=== PATIENT | male | born 1990 | race Hispanic/Latino ===

== ENCOUNTER 2016-11-06 22:36 | Emergency (ER) | payer MEDICAID, OTHER ==
[2016-11-06 22:39] VITALS: BMI 33.9
--- NOTE | 2016-11-06 23:06 | ED PDOC ---
Arrival/HPI - General Chief Complaint: Anxiety Time Seen by Provider: 11/06/16 22:44 Historian: Patient - History of Present Illness Narrative History of Present Illness (Text): 11/06/16 23:02 Prasanth Wright is a 25 year old male, with a history of anxiety, presents to the emergency department complaining of shortness of breath and diaphoresis for past few hours prior to arrival. States that symptoms are similar to previous panic attacks. States he was at the diner getting food when the symptoms presented. States he took Xanax prior to arrival for minimal relief. Denies fever, chills, headache, dizziness, chest pain, nausea, vomiting, diarrhea, urinary symptoms, or any other complaints at this time. Time/Duration: 1-3 hours Symptom Course: Unchanged Severity Level: Mild Activities at Onset: Light Past Medical History - Provider Review Nursing Documentation Reviewed: Yes - Infectious Disease Hx of Infectious Diseases: None - Gastrointestinal Hx Hemorrhoids: Yes - Psychiatric Hx Anxiety: Yes Hx Panic Disorder: Yes Hx Substance Use: No - Anesthesia Hx Anesthesia: No - Suicidal Assessment Feels Threatened In Home Enviroment: No Family/Social History - Physician Review Nursing Documentation Reviewed: Yes Family/Social History: No Known Family HX Smoking Status: Unknown If Ever Smoked Hx Alcohol Use: No Hx Substance Use: No Allergies/Home Meds Allergies/Adverse Reactions: Allergies No Known Allergies Allergy (Verified 10/02/14 04:40) Review of Systems - Physician Review All systems were reviewed & negative as marked: Yes - Review of Systems Constitutional: Normal. absent: Fatigue, Fevers Respiratory: SOB. absent: Cough, Sputum Cardiovascular: absent: Chest Pain, Palpitations, KEBEDE Gastrointestinal: absent: Abdominal Pain, Diarrhea, Nausea, Vomiting Musculoskeletal: Normal Neurological: Normal. absent: Headache, Dizziness Psychiatric: Anxiety Physical Exam Vital Signs Reviewed: Yes Vital Signs Temp Pulse Resp BP Pulse Ox 11/07/16 01:30 98.6 F 78 18 140/80 99 11/06/16 22:36 98.2 F 99 H 24 140/90 100 Temperature: Afebrile Blood Pressure: Normal Pulse: Tachycardic Respiratory Rate: Normal Appearance: Positive for: Well-Appearing, Non-Toxic, Comfortable Pain Distress: None Mental Status: Positive for: Alert and Oriented X 3 - Systems Exam Head: Present: Atraumatic, Normocephalic Pupils: Present: PERRL Conjunctiva: Present: Normal Respiratory/Chest: Present: Clear to Auscultation, Good Air Exchange. No: Respiratory Distress, Accessory Muscle Use Cardiovascular: Present: Regular Rate and Rhythm, Normal S1, S2. No: Murmurs Abdomen: Present: Normal Bowel Sounds. No: Tenderness, Distention, Peritoneal Signs Upper Extremity: Present: Normal Inspection. No: Cyanosis, Edema Lower Extremity: Present: Normal Inspection. No: Edema Neurological: Present: GCS=15, CN II-XII Intact, Speech Normal Skin: Present: Warm, Dry, Normal Color. No: Rashes Psychiatric: Present: Alert, Oriented x 3, Anxious Medical Decision Making ED Course and Treatment: 11/06/16 23:07 Impression: A 25 year old male who presents to the emergency department complaining of shortness of breath and diaphoresis, which is similar to previous panic attacks. Plan: -- Labs, cardiac enzymes -- Alchol level -- Drug screen -- Ativan -- Urinalysis -- Reassess and disposition Progress Notes: 11/07/16 01:56 Reevaluation: On reevaluation the patient feels better and is in no acute distress. I have discussed the results and plan with the patient, who expresses understanding. Patient given the opportunity to ask question, all questions were answered and there is agreement with the plan to discharge the patient home. Patient is stable for discharge. Patient was instructed to follow up with physician/clinic in 1-2 days or return if symptoms persist/worsen or new concerning symptoms arise. - Lab Interpretations Lab Results: 11/06/16 23:20 11/06/16 23:20 Lab Results 11/06/16 23:20: Alcohol, Quantitative < 10 11/06/16 23:20: Salicylates < 1 L, Acetaminophen < 10.0 L 11/06/16 23:20: Sodium 135, Potassium 3.3 L, Chloride 99, Carbon Dioxide 20 L, Anion Gap 19, BUN 16, Creatinine 0.9, Est GFR ( Amer) > 60, Est GFR (Non- Af Amer) > 60, Random Glucose 120 H, Calcium 10.2, Magnesium 1.8, Total Bilirubin 0.7, AST 51, ALT 55, Alkaline Phosphatase 153 H, Lactate Dehydrogenase 417, Total Creatine Kinase 73, Troponin I < 0.01, Total Protein 8.9 H, Albumin 4.8, Globulin 4.0, Albumin/Globulin Ratio 1.2 11/06/16 23:20: WBC 9.9 D, RBC 4.98, Hgb 15.5, Hct 43.5, MCV 87.3, MCH 31.1, MCHC 35.6, RDW 12.9, Plt Count 292, MPV 10.3, Gran % 68.2 H, Lymph % (Auto) 22.9 , Drew % (Auto) 5.7, Eos % (Auto) 2.7, Baso % (Auto) 0.5, Gran # 6.77 H, Lymph # 2.3, Drew # 0.6, Eos # 0.3, Baso # 0.05 I have reviewed the lab results: Yes - Medication Orders Current Medication Orders: Discontinued Medications Lorazepam (Ativan) 1 mg IVP ONCE ONE PRN Reason: Protocol Stop: 11/06/16 23:03 Last Admin: 11/06/16 23:15 Dose: 1 mg - Scribe Statement The provider has reviewed the documentation as recorded by the Carolee Cotton Provider Attestation: All medical record entries made by the Carolee were at my direction and personally dictated by me. I have reviewed the chart and agree that the record accurately reflects my personal performance of the history, physical exam, medical decision making, and the department course for this patient. I have also personally directed, reviewed, and agree with the discharge instructions and disposition. Disposition/Present on Arrival - Present on Arrival Any Indicators Present on Arrival: No History of DVT/PE: No History of Uncontrolled Diabetes: No Urinary Catheter: No History of Decub. Ulcer: No History Surgical Site Infection Following: None - Disposition Have Diagnosis and Disposition been Completed?: Yes Diagnosis: Anxiety Disposition: HOME/ ROUTINE Disposition Time: 02:00 Condition: GOOD Discharge Instructions (ExitCare): Anxiety (ED) Referrals: [facility] [Outside] - Follow up with primary [facility] [Outside] - Follow up with primary [facility] Venkat Garcia, [Non-Staff] - Follow up with primary
[2016-11-06 23:27] LABS: ADD MANUAL DIFF? NO
[2016-11-06 23:38] LABS: BASO # 0.05 K/mm3 (0.0-2.0); BASO % 0.5 % (0.0-3.0); EOS # 0.3 (0.0-0.7); EOS % 2.7 % (1.5-5.0); GRAN # 6.77 (1.4-6.5); GRAN % 68.2 % (50.0-68.0); HEMATOCRIT 43.5 % (42.0-52.0); LYMPH # 2.3 (1.2-3.4); LYMPH % 22.9 % (22.0-35.0); MEAN CELL VOLUME 87.3 fL (80.0-105.0); MEAN CORPUSCULAR HEMOGLOBIN 31.1 pg (25.0-35.0); MEAN CORPUSCULAR HGB CONC 35.6 g/dl (31.0-37.0); MEAN PLATELET VOLUME 10.3 fl (7.0-11.0); MONO # 0.6 (0.1-0.6); MONO % 5.7 % (1.0-6.0); PLATELET COUNT 292 10^3/uL (120.0-450.0); RED CELL DISTRIBUTION WIDTH 12.9 % (11.5-14.5); WHITE BLOOD COUNT 9.9 10^3/ul (4.5-11.0)
[2016-11-06 23:56] LABS: ALB/GLOB RATIO 1.2 (1.1-1.8); ALKALINE PHOSPHATASE 153 U/L (38-133); ALT/SGPT 55 U/L (7-56); AST/SGOT 51 U/L (15-59); BILIRUBIN,TOTAL 0.7 mg/dL (0.2-1.3); BLOOD UREA NITROGEN 16 mg/dL (7-21); CALCIUM 10.2 mg/dL (8.4-10.5); CARBON DIOXIDE 20 mmol/L (21-33); CHLORIDE 99 mmol/L (98-107); GFR AFRICAN-AMERICAN > 60; GLUCOSE,RANDOM 120 mg/dL (70-110); MAGNESIUM 1.8 mg/dL (1.7-2.2); POTASSIUM 3.3 mmol/L (3.6-5.0); SODIUM 135 mmol/L (132-148); TOTAL PROTEIN 8.9 g/dL (5.8-8.3)
[2016-11-07 00:17] LABS: TROPONIN I < 0.01 ng/mL
[2016-11-07 01:31] VITALS: BP 140/80; PULSE 78; RESP 18; TEMP 98.6; O2SAT 99
--- NOTE | 2016-11-07 22:58 | CARD ---
APPROVED REPORT EKG Measurement Heart [id number] NM [id number] <Conclusion> Normal sinus rhythm Nonspecific T wave abnormality Prolonged QT Abnormal ECG
== END 2016-11-07 01:40 | disposition home or self-care (01) ==
LOC: ED 22:36
DX: F41.9 Anxiety disorder, unspecified (principal)
CPT/HCPCS: 80053; 82550; 83615; 83735; 84484; 85025; 93005; 96374; 99283; G0480; J2060

== ENCOUNTER 2018-01-31 18:43 | Emergency (ER) | payer BC, MEDICAID ==
[2018-01-31 18:55] VITALS: BMI 33.6
[2018-01-31 19:02] VITALS: TEMP 98.2
--- NOTE | 2018-01-31 19:09 | ED PDOC ---
Arrival/HPI - General Chief Complaint: Anxiety Time Seen by Provider: 01/31/18 19:07 Historian: Patient - History of Present Illness Narrative History of Present Illness (Text): 01/31/18 19:09 Prasanth Wright is a 27 year old male, with a history of anxiety, presents to the emergency department complaining of shortness of breath , anxious, hyperventilating, tingling both hands x [employer]. Patient stated that at the end of his work out at the gym, he developed his symptoms. States that symptoms are similar to previous panic attack, but he never had tingling of hands. Patient denies chest pain, abdominal pain, n/v, urinary symptoms, illegal drug use, fever, dizziness, or abnormal gait. Time/Duration: Other (see hpi) Context: Home Past Medical History - Provider Review Nursing Documentation Reviewed: Yes - Infectious Disease Hx of Infectious Diseases: None - Gastrointestinal Hx Hemorrhoids: Yes - Psychiatric Hx Anxiety: Yes Hx Panic Disorder: Yes Hx Substance Use: No - Anesthesia Hx Anesthesia: No - Suicidal Assessment Feels Threatened In Home Enviroment: No Family/Social History - Physician Review Nursing Documentation Reviewed: Yes Family/Social History: Other Smoking Status: Never Smoked Hx Alcohol Use: No Hx Substance Use: No Allergies/Home Meds Allergies/Adverse Reactions: Allergies No Known Allergies Allergy (Verified 10/02/14 04:40) Home Medications: Home Meds Medication Instructions Recorded Confirmed Escitalopram Oxalate [Lexapro] 10 mg PO DAILY 01/31/18 01/31/18 clonazePAM [Klonopin] 0.5 mg PO DAILY 01/31/18 01/31/18 Review of Systems - Review of Systems Constitutional: Normal. absent: Fatigue, Weight Change, Fevers, Night Sweats Eyes: Normal ENT: Normal Respiratory: SOB. absent: Cough, Sputum, Wheezing Cardiovascular: Normal. absent: Chest Pain, Palpitations, Edema, Calf Pain, KEBEDE , Orthopnea, Syncope ([id number]) Gastrointestinal: Normal Genitourinary Male: Normal Musculoskeletal: Normal Skin: Normal Neurological: Normal Endocrine: Normal Hemo/Lymphatic: Normal Psychiatric: Anxiety, Other (see hpi). absent: Depression, Suicidal Ideation Physical Exam Vital Signs Temp Pulse Resp BP Pulse Ox 01/31/18 18:44 98.2 F 132 H 24 138/84 99 Temperature: Afebrile Blood Pressure: Normal Pulse: Tachycardic Respiratory Rate: Normal Appearance: Positive for: Well-Appearing, Non-Toxic, Comfortable Pain Distress: None Mental Status: Positive for: Alert and Oriented X 3 - Systems Exam Head: Present: Atraumatic, Normocephalic Pupils: Present: PERRL Extroacular Muscles: Present: EOMI Conjunctiva: Present: Normal Mouth: Present: Moist Mucous Membranes Neck: Present: Normal Range of Motion Respiratory/Chest: Present: Clear to Auscultation, Good Air Exchange. No: Respiratory Distress, Accessory Muscle Use Cardiovascular: Present: Regular Rate and Rhythm, Normal S1, S2. No: Murmurs Abdomen: No: Tenderness, Distention, Peritoneal Signs Back: Present: Normal Inspection Upper Extremity: Present: Normal Inspection. No: Cyanosis, Edema Lower Extremity: Present: Normal Inspection. No: Edema Neurological: Present: GCS=15, CN II-XII Intact, Speech Normal Skin: Present: Warm, Dry, Normal Color. No: Rashes Psychiatric: Present: Alert, Oriented x 3, Anxious Medical Decision Making ED Course and Treatment: 01/31/18 20:56 Re-evaluation. Patient feels better. Discussed results and plan with patient who expresses understanding. All questions answered and there is agreement with the plan to discharge home with instructions. Patient stable for discharge. Return if symptoms persist or worsen Patient refused PES evaluation. Patient was recommended to follow up pmd in 1- 2 days, and to return to emergency department if symptom worsen. Re-evaluation Time: 20:57 Reassessment Condition: Re-examined, Improved - Lab Interpretations Lab Results: 01/31/18 19:38 01/31/18 19:38 Lab Results 01/31/18 19:41: POC Glucose (mg/dL) 81 01/31/18 19:38: Alcohol, Quantitative < 10 01/31/18 19:38: Salicylates < 1 L, Acetaminophen < 10.0 L 01/31/18 19:38: Sodium 141, Potassium 3.8, Chloride 100, Carbon Dioxide 26, Anion Gap 19, BUN 19, Creatinine 0.9, Est GFR ( Amer) > 60, Est GFR (Non- Af Amer) > 60, Random Glucose 92, Calcium 10.1, Magnesium 1.6 L, Total Bilirubin 0.6, AST 39, ALT 42, Alkaline Phosphatase 180 H, Total Protein 8.7 H, Albumin 4.8, Globulin 3.9, Albumin/Globulin Ratio 1.2 01/31/18 19:38: WBC 9.8, RBC 5.01, Hgb 15.4, Hct 43.4, MCV 86.6, MCH 30.7, MCHC 35.5, RDW 13.5, Plt Count 267, MPV 10.2, Gran % 65.3, Lymph % (Auto) 26.6, Tama % (Auto) 6.7 H, Eos % (Auto) 1.0 L, Baso % (Auto) 0.4, Gran # 6.42, Lymph # ( Auto) 2.6, Tama # (Auto) 0.7 H, Eos # (Auto) 0.1, Baso # (Auto) 0.04 I have reviewed the lab results: Yes Interpretation: No sign. chg./baseline - RAD Interpretation Narrative RAD Interpretations (Text): 01/31/18 20:52 Chest X-Ray: NAD Radiology Orders: 01/31/18 19:50 CHEST PORTABLE [RAD] Stat - EKG Interpretation Interpreted by ED Physician: Yes (NSR @ [address] changes) Type: 12 lead EKG - Medication Orders Current Medication Orders: Discontinued Medications Lorazepam (Ativan) 1 mg IVP ONCE ONE PRN Reason: Protocol Stop: 01/31/18 19:11 Last Admin: 01/31/18 19:40 Dose: 1 mg IVP Administration Document 01/31/18 19:40 RD (Rec: 01/31/18 19:40 RD [id number]) Charges for Administration # of IVP Administrations 1 Disposition/Present on Arrival - Present on Arrival Any Indicators Present on Arrival: No History of DVT/PE: No History of Uncontrolled Diabetes: No Urinary Catheter: No History of Decub. Ulcer: No History Surgical Site Infection Following: None - Disposition Have Diagnosis and Disposition been Completed?: Yes Diagnosis: Anxiety Disposition: HOME/ ROUTINE Disposition Time: 20:54 Patient Plan: Discharge Patient Problems: Current Active Problems Problem Status Onset Anxiety Acute Condition: IMPROVED Discharge Instructions (ExitCare): Anxiety, Adult (DC) Additional Instructions: Call private doctor for follow up visit in 1-2 days. Continue with home medication for anxiety. Return to emergency if you develop chest pain, or worsening of your symptoms. Make sure to follow up with private psychiatrist for your anxiety. Referrals: Akila VILLAR,Inder Nugent MD [Primary Care Provider] - Follow up with primary Jd Chin MD [Staff Provider] - Follow up with primary Forms: [employer] (Belarusian), WORK NOTE
[2018-01-31 19:54] LABS: BASO # 0.04 K/mm3 (0.0-2.0); BASO % 0.4 % (0.0-3.0); EOS # 0.1 (0.0-0.7); GRAN # 6.42 (1.4-6.5); GRAN % 65.3 % (50.0-68.0); HEMOGLOBIN 15.4 g/dL (14.0-18.0); LYMPH # 2.6 (1.2-3.4); LYMPH % 26.6 % (22.0-35.0); MEAN CELL VOLUME 86.6 fl (80.0-105.0); MEAN CORPUSCULAR HEMOGLOBIN 30.7 pg (25.0-35.0); MEAN CORPUSCULAR HGB CONC 35.5 g/dl (31.0-37.0); MEAN PLATELET VOLUME 10.2 fl (7.0-11.0); MONO # 0.7 (0.1-0.6); MONO % 6.7 % (1.0-6.0); RBC 5.01 10^6/uL (3.5-6.1); RED CELL DISTRIBUTION WIDTH 13.5 % (11.5-14.5); WHITE BLOOD COUNT 9.8 10^3/ul (4.5-11.0)
[2018-01-31 20:04] LABS: ACETAMINOPHEN < 10.0 ug/ml (10.0-20.0); SALICYLATE < 1 mg/dL (2.0-20.0)
[2018-01-31 20:05] LABS: ALB/GLOB RATIO 1.2 (1.1-1.8); ALBUMIN 4.8 g/dL (3.0-4.8); ALT/SGPT 42 U/L (7-56); AST/SGOT 39 U/L (17-59); BLOOD UREA NITROGEN 19 mg/dL (7-21); CALCIUM 10.1 mg/dL (8.4-10.5); GFR AFRICAN-AMERICAN > 60; GFR NON-AFRICAN AMERICAN > 60
[2018-01-31 20:55] LABS: PH,URINE 6.5 (4.7-8.0); URINE BILIRUBIN NEGATIVE (NEGATIVE); URINE BLOOD NEGATIVE (NEGATIVE); URINE GLUCOSE (UA) NEGATIVE (NEGATIVE); URINE LEUKOCYTE ESTERASE NEGATIVE Leu/uL (NEGATIVE); URINE PROTEIN NEGATIVE mg/dL (<30 mg/dL); URINE UROBILINOGEN 0.2 E.U./dL (<1 E.U./dL)
[2018-01-31 20:56] LABS: URINE APPEARANCE CLEAR (CLEAR); URINE COLOR YELLOW (YELLOW)
[2018-01-31 21:25] VITALS: BP 103/57; PULSE 94; RESP 16; O2SAT 96
--- NOTE | 2018-02-01 09:07 | RAD ---
Date of service: 01/31/2018 HISTORY: tachycardia COMPARISON: No prior. FINDINGS: LUNGS: No active pulmonary disease. PLEURA: No significant pleural effusion identified, no pneumothorax apparent. CARDIOVASCULAR: Normal. OSSEOUS STRUCTURES: No significant abnormalities. VISUALIZED UPPER ABDOMEN: Normal. OTHER FINDINGS: None. IMPRESSION: No active disease.
--- NOTE | 2018-02-01 21:02 | CARD ---
APPROVED REPORT Date of service: 01/31/2018 EKG Measurement Heart [id number] KS 158P51 [id number] <Conclusion> Normal sinus rhythm Normal ECG
== END 2018-01-31 21:31 | disposition home or self-care (01) ==
LOC: ED 18:43
DX: F41.9 Anxiety disorder, unspecified (principal)
CPT/HCPCS: 71045; 80053; 81003; 82948; 83735; 85025; 93005; 96374; 99284; G0480; J2060